=== PATIENT | male | born 1990 | race Caucasian/White ===

== ENCOUNTER 2021-06-13 17:01 | Inpatient (IN) | payer OTHER ==
[2021-06-13] MEDS ORDERED: ACETAMINOPHEN 325 MG TABLET (FP) PO PRN ×2 (19:44)
[2021-06-13] MEDS ORDERED: IBUPROFEN 400 MG TABLET (FP) PO PRN (19:44)
[2021-06-13] MEDS ORDERED: NALOXONE (NARCAN) HCL 4 MG/0.1 ML SPRAY NS PRN (19:44)
[2021-06-13] MEDS ORDERED: NICOTINE 10 MG CARTRIDGE (INHALER) IH PRN (19:44)
[2021-06-13] MEDS ORDERED: BISMUTH SUBSALICYLATE 524 MG/30 ML PO PRN (19:44)
[2021-06-13] MEDS ORDERED: methaDONE HCL 10 MG TABLET (FOR DETOX USE ONLY) PO ONE (19:44)
[2021-06-13] MEDS ORDERED: MENTHOL/PHENOL 1 EACH UD MM PRN (19:44)
[2021-06-13] MEDS ORDERED: MAG HYDROX/AL HYDROX/SIMETH 30 ML UNIT-DOSE CUP PO PRN (19:44)
[2021-06-13] MEDS ORDERED: ONDANSETRON *ODT* 4 MG TABLET SL PRN (19:44)
[2021-06-13] MEDS ORDERED: MAGNESIUM HYDROX 2400MG/30ML ORAL SUSPENSION 30 ML CUP PO PRN (19:44)
[2021-06-13] MEDS ORDERED: clonazePAM 0.5 MG ODT TABLETS SL PRN (19:44)
[2021-06-13] MEDS ORDERED: MAGNESIUM CITRATE 300 ML BOTTLE PO PRN (19:44)
[2021-06-13 20:57] VITALS: BMI 21.9
[2021-06-13] MEDS ORDERED: methaDONE HCL 10 MG TABLET (FOR DETOX USE ONLY) ONE (23:07)
[2021-06-13] MEDS ORDERED: hydrOXYzine PAMOATE 25 MG CAPSULE (FP) PO ONE (23:07)
[2021-06-13] MEDS: THIAMINE HCL 100 MG TABLET (FP) PO SCH (23:17)
[2021-06-13] MEDS: hydrOXYzine PAMOATE 25 MG CAPSULE (FP) PO SCH (23:17)
[2021-06-13] MEDS: MELATONIN 5 MG TABLETS PO SCH (23:17)
[2021-06-14] MEDS ORDERED: hydrOXYzine PAMOATE 25 MG CAPSULE (FP) PO ONE (05:26)
[2021-06-14] MEDS: hydrOXYzine PAMOATE 25 MG CAPSULE (FP) PO SCH ×6 (05:47→22:50)
[2021-06-14] MEDS ORDERED: methaDONE HCL 10 MG TABLET (FOR DETOX USE ONLY) ONE (11:23)
[2021-06-14] MEDS: METHOCARBAMOL 500 MG TABLET PO PRN ×2 (12:05→22:50)
[2021-06-14] MEDS: cloNIDine HCL 0.1 MG TABLET PO PRN ×2 (13:18→22:50)
[2021-06-14 14:30] LABS: HEMATOCRIT 38.2 % (35.4-49); HEMOGLOBIN 12.7 GM/dL (11.7-16.9); MCH 28.1 pg (25.7-33.7); MCHC 33.2 g/dl (32.0-35.9); MEAN CELL VOLUME 84.7 fl (80-96); MEAN PLT VOLUME 8.7 fl (7.5-11.1); PLATELET COUNT 346 10^3/uL (134-434); RBC 4.51 M/mm3 (4.00-5.60); RDW 14.7 % (11.9-15.9); WHITE BLOOD COUNT 6.7 K/mm3 (4.0-10.0)
[2021-06-14 14:52] LABS: ALBUMIN 2.4 g/dl (3.4-5.0)
[2021-06-14 14:54] LABS: BILIRUBIN,TOTAL 0.6 mg/dL (0.2-1); BLOOD UREA NITROGEN 8.5 mg/dL (7-18)
[2021-06-14 14:55] LABS: CREATININE 0.7 mg/dL (0.55-1.3)
[2021-06-14 14:57] LABS: TOT PROT 5.9 g/dl (6.4-8.2)
[2021-06-14] MEDS: MELATONIN 5 MG TABLETS PO SCH ×2 (22:42→22:50)
[2021-06-14] MEDS: THIAMINE HCL 100 MG TABLET (FP) PO SCH ×2 (22:42→22:50)
[2021-06-15] MEDS: hydrOXYzine PAMOATE 25 MG CAPSULE (FP) PO SCH ×5 (06:00→23:19)
[2021-06-15] MEDS ORDERED: methaDONE HCL 10 MG TABLET (FOR DETOX USE ONLY) PO ONE (10:00)
[2021-06-15] MEDS: cloNIDine HCL 0.1 MG TABLET PO PRN (18:03)
[2021-06-15] MEDS: MELATONIN 5 MG TABLETS PO SCH (23:19)
[2021-06-15] MEDS: THIAMINE HCL 100 MG TABLET (FP) PO SCH (23:19)
[2021-06-16] MEDS: hydrOXYzine PAMOATE 25 MG CAPSULE (FP) PO SCH ×6 (05:38→23:21)
[2021-06-16] MEDS ORDERED: methaDONE HCL 10 MG TABLET (FOR DETOX USE ONLY) ONE (09:04)
[2021-06-16] MEDS: METHOCARBAMOL 500 MG TABLET PO PRN (09:06)
[2021-06-16 09:24] VITALS: BP 152/101; PULSE 99; TEMP 97.6
[2021-06-16] MEDS ORDERED: amLODIPine BESYLATE 5 MG TABLET (FP) PO SCH (10:30)
[2021-06-16] MEDS: THIAMINE HCL 100 MG TABLET (FP) PO SCH (23:21)
[2021-06-16] MEDS: MELATONIN 5 MG TABLETS PO SCH (23:21)
[2021-06-17] MEDS ORDERED: methaDONE HCL 10 MG TABLET (FOR DETOX USE ONLY) PO ONE (10:00)
== END 2021-06-16 16:40 | disposition left against medical advice (07) | DRG 770 ==
LOC: YASAS 17:01 → Y6N 06-14 10:02
PROVIDERS: ADMIT Allergy & Immunology; ATTEND Allergy & Immunology
PROC: HZ2ZZZZ Detoxification Services for Substance Abuse Treatment (ICD-10-PCS; principal; 2021-06-14)
DX: F11.23 Opioid dependence with withdrawal (principal); F10.230 Alcohol dependence with withdrawal, uncomplicated; F13.230 Sedative, hypnotic or anxiolytic dependence with withdrawal, uncomplicated; F14.20 Cocaine dependence, uncomplicated; F15.20 Other stimulant dependence, uncomplicated; F17.210 Nicotine dependence, cigarettes, uncomplicated; R03.0 Elevated blood-pressure reading, without diagnosis of hypertension
CPT/HCPCS: 36415; 80053; 85027; 86780; C9803; J0735; U0003; U0005